=== PATIENT | female | born 1965 ===

== ENCOUNTER 2017-09-02 07:30 | Inpatient (IN) | payer BC ==
[~2017-09-02] VITALS: Ht 167.6 cm; Wt 58.1 kg
[2017-09-03] VITALS (10 sets, daily range): BP systolic 100–121; BP diastolic 43–64
[2017-09-03] MEDS ORDERED: Lidocaine 1% 10mg/ml/Epi 0.005mg/ml 30ml vial INJ ONE (09:08)
[2017-09-03] MEDS ORDERED: Bupivacaine 0.5% Inj 30 ml vial INJ ONE (09:09)
[2017-09-03] MEDS ORDERED: Midazolam 2mg/2ml Inj ONE (09:09)
[2017-09-03] MEDS ORDERED: fentaNYL 100 mcg/2 mL IV ONE (09:09)
[2017-09-03] MEDS ORDERED: Propofol 200mg/20ml IV ONE (09:09)
[2017-09-03] MEDS ORDERED: Bacitracin 50000 Units Vial ONE (09:09)
[2017-09-03] MEDS ORDERED: Clindamycin 600mg 50 ML IV ONE (09:38)
[2017-09-03] MEDS ORDERED: NeoSporin Gu Irrig 1ml Amp IRRIG ONE (09:45)
--- NOTE | 2017-09-03 09:55 | Pre-Procedure Note/Attestation ---
Pre-Procedure Note/Attestation Complete Prior to Procedure Planned Procedure: bilateral Procedure Narrative: bilateral removal of breast implants; bilateral capsulectomies/capsulotomies; bilateral insertion of tissue expanders Indications for Procedure Pre-Operative Diagnosis: status post breast augmentation; right breast cancer; right capsular contracture ; possible bilateral implant rupture Attestation I attest that I discussed the nature of the procedure; its benefits; risks and complications; and alternatives (and the risks and benefits of such alternatives ), prior to the procedure, with the patient (or the patient's legal client service representative). I attest that, if there was a reasonable possibility of needing a blood transfusion, the patient (or the patient's legal client service representative) was given the [place] [facility] [employer] [facility] standardized written summary, pursuant to the [place] Blood Safety Act ([place] Health and Safety Code # 1645, as amended). I attest that I re-evaluated the patient just prior to the surgery and that there has been no change in the patient's H&P, except as documented below: Devonte Rankin MD September 03, 2017 09:55
--- NOTE | 2017-09-03 09:57 | Brief Operative Note ---
Immediate Post Operative Note Operative Note Pre-op Diagnosis: status post breast augmentation; right breast cancer; right capsular contracture ; possible bilateral implant rupture Procedure: bilateral removal of breat implants; bilateral 1st stage reconstruction with insertion of tissue expanders Post-op Diagnosis: same Post-op Diagnosis: same as pre-op Findings: consistent w/pre-op dx studies Surgeon: Devonte Rankin Anesthesia: general Specimen: yes Complications: none Condition: stable Fluids: 5000 cc R/L Estimated Blood Loss: minimal Drains: none Packing: none Implant(s) used?: Yes Devonte Rankin MD September 03, 2017 09:57
[2017-09-03] MEDS ORDERED: BENADRYL25 M3 PO (09:59)
[2017-09-03] MEDS ORDERED: MELATONIN5 M5 ORAL (09:59)
[2017-09-03] MEDS ORDERED: 5HTP PO (09:59)
[2017-09-03] MEDS ORDERED: BIOTIN5 MG PO (09:59)
[2017-09-03] MEDS ORDERED: NS Irrig 1000ml ONE (10:00)
[2017-09-03] MEDS ORDERED: Dexamethasone 4mg/ml vial ONE (10:00)
[2017-09-03] MEDS ORDERED: LR 1000ml ONE (10:00)
[2017-09-03] MEDS ORDERED: Sterile Water Irrig 1000ml IRRIG ONE (10:00)
--- NOTE | 2017-09-03 11:05 | Anethesia Preoperative Eval ---
Anesthesia Pre-op PMH/ROS General Date of Evaluation: September 03, 2017 Time of Evaluation: 09:50 Anesthesiologist: Freya ASA Score: ASA 2 Mallampati Score Class I : Soft palate, uvula, fauces, pillars visible Class II: Soft palate, uvula, fauces visible Class III: Soft palate, base of uvula visible Class IV: Only hard plate visible Mallampati Classification: Class II Surgeon: Massiel Diagnosis: R breast deformity Surgical Procedure: Bilateral breasts reconstruction Anesthesia History: PONV Family History: no anesthesia problems Allergies: Coded Allergies: ADHESIVE TAPE (Verified Allergy, Severe, blisters, 09/03/17) CEPHALEXIN (Verified Allergy, Severe, hives, 09/03/17) LATEX (Verified Allergy, Severe, blisters, 09/03/17) Past Medical History Cardiovascular: Denies: HTN, CAD, ID, valve dz, arrhythmia, other Pulmonary: Denies: asthma, COPD, ANI, other Gastrointestinal/Genitourinary: Reports: GERD - mild Neurologic/Psychiatric: Reports: depression/anxiety; Denies: dementia, CVA, TIA, other Endocrine: Denies: DM, hypothyroidism, steroids, other HEENT: Denies: cataract (L), cataract (R), glaucoma, AGDAAGUX (L), AGDAAGUX (R), other Hematology/Immune: Reports: anemia - mild Musculoskeletal/Integumentary: Reports: edema, other - h/o breast CA s/p Sx; Denies: OA, RA, DJD, DDD PMH Narrative: as above PSxH Narrative: Breasts augmentation, lumpectomies Anesthesia Pre-op Phys. Exam Physician Exam Last Vital Signs Date Time Temp Pulse Resp B/P (MAP) Pulse Ox O2 Delivery O2 Flow Rate FiO2 09/03/17 09:44 98.8 65 18 110/59 100 Room Air 98.8 Constitutional: NAD Neurologic: CN 2-12 intact Cardiovascular: RRR, no M/R/G Respiratory: CTA Gastrointestinal: S/NT/ND Airway Exam Mallampati Score: Class II MO: full Neck: flexible ROM: full Teeth: intact Dentures: no upper, no lower Anesthesia Pre-op A/P Labs see chart Urine Test Test 09/03/17 09:15 Urine HCG, Qualitative Negative (NEGATIVE) Studies Pre-op Studies: EKG - NSR Risk Assessment & Plan Assessment: ASA 2 Plan: GA with ETT, patient requested inhalational induction with IV placement after that, POnV prevention Status Change Before Surgery: No Pre-Antibiotics Drug: Clindamycin 600 mg Given Within 1 Hr of Incision: Yes Time Given: 10:22 Fabio Pillai MD September 03, 2017 11:05
[2017-09-03] MEDS ORDERED: Morphine Sulfate 10mg/ml Inj ONE (11:06)
[2017-09-03] MEDS ORDERED: LR 1000ml 1,000 ML IVLG SCH (11:08)
[2017-09-03] MEDS ORDERED: Meperidine 50mg/ml Inj(FOR RIGORS ONLY) IV PRN (11:15)
[2017-09-03] MEDS ORDERED: Ketorolac 30mg Inj IV PRN (11:15)
[2017-09-03] MEDS ORDERED: Midazolam 2mg/2ml Inj IVP PRN (11:15)
[2017-09-03] MEDS ORDERED: DiphenhydrAMINE 50mg/ml Inj IVP PRN (11:15)
[2017-09-03] MEDS ORDERED: fentaNYL 100 mcg/2 mL IV PRN (11:15)
[2017-09-03] MEDS ORDERED: Metoclopramide 10mg/2ml Inj IVP PRN (11:15)
[2017-09-03] MEDS ORDERED: Ketorolac 30mg Inj ONE (11:49)
[2017-09-03] MEDS ORDERED: Neostigmine 1mg/ml 10ml Inj ONE (11:50)
[2017-09-03] MEDS ORDERED: Glycopyrrolate 0.2mg/ml 1ml Vial ONE (11:50)
--- NOTE | 2017-09-03 12:33 | Immediate Post-Op Evaluation ---
Immediate Post-Op Evalulation Immediate Post-Op Evalulation Procedure: Bilateral breasts reconstruction Date of Evaluation: September 03, 2017 Time of Evaluation: 12:32 IV Fluids: 1000 Blood Products: none Estimated Blood Loss: min Urinary Output: none Blood Pressure Systolic: 105 Blood Pressure Diastolic: 56 Pulse Rate: 72 Respiratory Rate: 20 O2 Sat by Pulse Oximetry: 99 Temperature (Fahrenheit): 98.1 Pain Score (1-10): 1 Nausea: No Vomiting: No Complications none Patient Status: reacts, patent, extubated, none Hydration Status: adequate Fabio Pillai MD September 03, 2017 12:33
[2017-09-03] MEDS ORDERED: Morphine Sulfate 4mg/ml Inj IM PRN (12:45)
[2017-09-03] MEDS: Zolpidem 5mg tab ORAL PRN (21:38)
[2017-09-04] VITALS: BP 127/67
[2017-09-04 04:00] VITALS: BP 118/68
[2017-09-04 08:00] VITALS: BP 105/60
--- NOTE | 2017-09-04 10:48 | 48 Hour Post Anesthesia Eval ---
Post Anesthesia Evaluation Procedure: Bilateral breasts reconstruction Date of Evaluation: September 04, 2017 Time of Evaluation: 10:44 Blood Pressure Systolic: 106 0: 62 Pulse Rate: 74 Respiratory Rate: 20 Temperature (Fahrenheit): 97.6 O2 Sat by Pulse Oximetry: 98 Airway: patent Nausea: No Vomiting: No Pain Intensity: 3 Hydration Status: adequate Cardiopulmonary Status: stable Mental Status/LOC: patient returned to baseline Follow-up Care/Observations: complains on some burning sensation and pain on L shoulder area ECG pad placement place, locally epidermal defect up to 5 mm in diameter without surrounding inflammatory reaction local anesthetic ointment ordered. Post-Anesthesia Complications: none Follow-up care needed: N/A Fabio Pillai MD September 04, 2017 10:48
[2017-09-04] MEDS: Norco 5mg/325mg tab ORAL PRN ×2 (11:31→17:12)
[2017-09-04 12:00] VITALS: BP 98/55
[2017-09-04 16:00] VITALS: BP 98/55
[2017-09-04 20:00] VITALS: BP 98/61
[2017-09-04] MEDS ORDERED: Docusate 100mg cap ORAL SCH (21:30)
[2017-09-04] MEDS: Zolpidem 5mg tab ORAL PRN (21:35)
[2017-09-05] VITALS: BP 105/61
[2017-09-05 04:00] VITALS: BP 99/55
[2017-09-05] MEDS: Norco 5mg/325mg tab ORAL PRN ×3 (04:16→15:39)
[2017-09-05 08:00] VITALS: BP 120/55
[2017-09-05 12:00] VITALS: BP 117/53
[2017-09-05 16:00] VITALS: BP 115/59
--- NOTE | 2017-09-06 09:00 | Operative Note - Dictated ---
DATE OF OPERATION: 09/03/2017 PREOPERATIVE DIAGNOSES: 1. Status post right breast cancer. 2. Status post bilateral breast reconstruction. 3. Bilateral capsular contractures of the breast. 4. Right breast mass. 5. Possible bilateral implant rupture. POSTOPERATIVE DIAGNOSES: 1. Status post right breast cancer. 2. Status post bilateral breast reconstruction. 3. Bilateral capsular contractures of the breast. 4. Right breast mass. 5. Possible bilateral implant rupture. PROCEDURE: 1. Bilateral removal of breast prosthesis. 2. Left capsulotomy. 3. Right capsulotomy and partial capsulectomy. 4. Right breast biopsy. 5. Bilateral first stage reconstruction with insertion of tissue expanders. SURGEON: Devonte Rankin M.D. HANDLE TURNER: None. ANESTHESIOLOGIST: Fabio Pillai M.D. ANESTHESIA: General. DESCRIPTION OF PROCEDURE: Skin markings were applied with the patient awake and upright. She was then placed supine on the operating table. General anesthesia with endotracheal intubation was induced. The chest was prepped and draped in the usual fashion. Inframammary regions were injected with Xylocaine with epinephrine. Bilateral 5.5-cm incisions were made in the mid portion of the inframammary fold. This was obvious on the left side, but on the right side, the inframammary fold had to be created at the level corresponding to the contralateral side. Incision on the left was carried through the skin using scalpel and using cutting cautery dissection extended to the chest wall. The inferior portion of the capsule was opened with cutting cautery and the implant was removed. It was measured as a [place] Moderate Plus 200 cc implant and was intact. A circumferential capsulotomy was carried out. Bleeding points were controlled with electrocautery. The capsule was irrigated with antibiotic solution. A Biocell 500 cc tissue jewelry bearing maker was then deflated of air and partially inflated to 100 mL of sterile saline and then placed within the pocket , oriented with the fill valve filled out superiorly. The soft tissue was then closed inferiorly with 4-0 Monocryl. The dermis was closed with 4-0 Monocryl and the skin was closed with running subcuticular suture of 4-0 Prolene. On the right side, an incision was made 5.5-cm in length at the new intended inframammary crease. The incision was carried through the skin using cutting cautery and was extended to the chest wall. In the inframammary region, the dissection was carried out with scissors medially and laterally to establish the most inferior extent of the placement of the tissue jewelry bearing maker. By dissecting cephalad with cutting cautery, the capsule surrounding the implant was opened and the implant was removed and found to be intact. This was a [place] Moderate Plus Smooth Silicone 225 cc implant. A circumferential capsulotomy was carried out anteriorly. Dense hard capsular contracture was noted and a dense mass in the inferior pole of the breast. This was then dissected free from the overlying tissue with cutting cautery and Metzenbaum scissors, and submitted in formalin for permanent identification and inferior capsulectomy was carried out with cutting cautery. The pocket was enlarged to accommodate the tissue jewelry bearing maker. Bleeding points were controlled with electrocautery. The pocket was irrigated with antibiotic solution. Marcaine was placed within the pocket for postoperative pain management. The tissue jewelry bearing maker was then deflated and partially inflated to 100 cc and placed within the pocket. The wound was closed similarly with 4-0 Monocryl in the soft tissue and dermis. Skin was closed with running subcuticular 4-0 Prolene. Steri-Strips were applied. Xeroform gauze was applied. Sterile gauze was applied. Paper tape was applied. The patient was placed in surgical garment. Estimated blood loss during the procedure was negligible. Sponge and needle counts were correct at the conclusion of the case. The patient was awakened, extubated, and returned to recovery room in excellent condition. Devonte Rankin M.D. DR: Rosy JOB#: [id number] CC: HAYLEY
--- NOTE | 2017-09-07 11:50 | Discharge Summary ---
Discharge Summary Hospital Course Date of Admission September 03, 2017 at 08:56 Date of Discharge September 05, 2017 at 17:30 Admitting Diagnosis Possible bilateral implant rupture. Reason for Hospitalization: elective surgery HPI Cielo Zepeda is a 52 year old female who was admitted on September 03, 2017 at 08: 56 for Hx of right breast cancer, s/p reconstructive surgery with bilateral implants, possible bilateral implants rupture. Patient was admitted for elective surgery Procedures s/p 09/03/[address]in 1. Bilateral removal of breast prosthesis. 2. Left capsulotomy. 3. Right capsulotomy and partial capsulectomy. 4. Right breast biopsy. 5. Bilateral first stage reconstruction with insertion of tissue expanders. Hospital Course Status post surgery Course of recovery uneventful Pain management addressed and controlled Dressings intact Ambulated Tolerated diet Voided freely Discharge instruction provided Follow-up with outpatient surgeon FINAL DIAGNOSIS 1. Status post right breast cancer. 2. Status post bilateral breast reconstruction. 3. Bilateral capsular contractures of the breast. 4. Right breast mass. 5. Possible bilateral implant rupture. 6. s/p 09/03/17 bilateral removal of breast implants; bilateral 1st stage reconstruction with insertion of tissue expanders Discharge Condition Upon Discharge: stable Discharge Disposition Patient was discharged to Home (01) Discharge Instructions Discharge Instructions Special Instructions I have been assigned to complete a D/C Summary on this account. I was not involved in the patient management Paulina Mason NP September 07, 2017 11:50
== END 2017-09-05 17:30 | disposition home or self-care (01) | DRG 585 ==
LOC: SDSOVERFLO 09-03 08:56 → EDSTATUS 09-03 11:00 → 3E 09-03 15:40
PROC: 0HBT0ZX Excision of Right Breast, Open Approach, Diagnostic (ICD-10-PCS; principal; 2017-09-03 09:30)
PROC: 0HPT0JZ Removal of Synthetic Substitute from Right Breast, Open Approach (ICD-10-PCS; principal; 2017-09-03 09:30)
PROC: 0HPU0JZ Removal of Synthetic Substitute from Left Breast, Open Approach (ICD-10-PCS; principal; 2017-09-03 09:30)
PROC: 0HHV0NZ Insertion of Tissue Expander into Bilateral Breast, Open Approach (ICD-10-PCS; principal; 2017-09-03 09:30)
DX: T85.44XA Capsular contracture of breast implant, initial encounter (principal); N63.0 Unspecified lump in unspecified breast; Z85.3 Personal history of malignant neoplasm of breast; T85.49XA Other mechanical complication of breast prosthesis and implant, initial encounter
CPT/HCPCS: 81025; 87081; 94003; 94150; J2250; J2405; J2710; S0077